=== PATIENT | male | born 1995 | race Caucasian/White ===

== ENCOUNTER 2017-10-28 23:30 | Emergency (ER) | payer OTHER ==
[2017-10-28 23:39] VITALS: BP 153/89; PULSE 101; TEMP 97.4; BMI 25.1
--- NOTE | 2017-10-29 00:51 | PDOC ---
History of Present Illness - General History Source: Patient Exam Limitations: No Limitations - History of Present Illness Initial Comments: 10/29/17 01:00 The patient is a 22 year old male with no significant past medical history who presents to the ED today with right upper extremity pain for 2 hours. The patient states that yesterday he was working out and felt ok. Overnight the patient began to experience pain in his right arm and woke up secondary to his pain. He reports associated swelling of his right upper extremity and notes that his pain is mostly concentrated in the anterior cubital fossa and radiates throughout his elbow. <Faraz Fragoso - Last Filed: 10/29/17 01:00> - General History Source: Patient <Daniel Hunter - Last Filed: 10/29/17 02:00> - General Chief Complaint: Pain, Acute Stated Complaint: ARM INJURY Time Seen by Provider: 10/29/17 00:47 Past History <Faraz Fragoso - Last Filed: 10/29/17 01:00> - Past Medical History COPD: No - Suicide/Smoking/Psychosocial Hx Smoking History: Never smoked Have you smoked in the past 12 months: No Information on smoking cessation initiated: No Hx Alcohol Use: No Drug/Substance Use Hx: No <Daniel Hunter - Last Filed: 10/29/17 02:00> - Past Medical History Allergies/Adverse Reactions: Allergies Allergy/AdvReac Type Severity Reaction Status Date / Time No Known Allergies Allergy Verified 10/28/17 23:39 Home Medications: Ambulatory Orders Ibuprofen 800 mg PO TID #30 tablet 10/29/17 Methocarbamol [Robaxin -] 750 mg PO Q8H #30 tablet 10/29/17 Review of Systems - Review of Systems Able to Perform ROS?: Yes Comments:: 10/29/17 01:00 CONSTITUTIONAL: Absent: fever, no chills, no fatigue EYES: Absent: visual changes ENT: Absent: ear pain, no sore throat CARDIOVASCULAR: Absent: chest pain, no palpitations RESPIRATORY: Absent: cough, no SOB GI: Absent: abdominal pain, no nausea, no vomiting, no constipation, no diarrhea GENITOURINARY: Absent: dysuria, no frequency, no hematuria MUSCULOSKELETAL: (+) Right upper extremity joint pain Absent: back pain, no myalgia SKIN: Absent: rash <Faraz Fragoso - Last Filed: 10/29/17 01:00> *Physical Exam - Vital Signs Last Vital Signs Temp Pulse Resp BP Pulse Ox 97.4 F L 101 H 20 153/89 98 10/28/17 23:37 10/28/17 23:37 10/28/17 23:37 10/28/17 23:37 10/28/17 23:37 - Physical Exam Comments: 10/29/17 01:00 GENERAL: Well-appearing, well-nourished. No apparent distress. HEENT: Normocephalic, atraumatic. PERRL, EOM intact. CARDIOVASCULAR: Normal S1, S2. Regular rate and rhythm. PULMONARY: Clear to auscultation bilaterally. ABDOMEN: Soft, non-distended, non-tender. EXTREMITIES: (+) Pain and edema to right anterior fossa extending throughout entire elbow joint with limited ability to extend or further flex without pain; FROM of right shoulder. No gross deformities. SKIN: Warm, dry. No rash NEUROLOGICAL: No focal neurological deficits. <Faraz Fragoso - Last Filed: 10/29/17 01:00> - Vital Signs Last Vital Signs Temp Pulse Resp BP Pulse Ox 97.4 F L 101 H 20 153/89 98 10/28/17 23:37 10/28/17 23:37 10/28/17 23:37 10/28/17 23:37 10/28/17 23:37 <Daniel Hunter - Last Filed: 10/29/17 02:00> ED Treatment Course - Medications Given in the ED: ED Medications Discontinued Medications Generic Name Dose Route Start Last Admin Trade Name Ishaan PRN Reason Stop Dose Admin Ibuprofen 800 mg 10/29/17 00:52 10/29/17 00:59 Motrin - PO 10/29/17 00:53 800 mg ONCE ONE Administration Methocarbamol 1,000 mg 10/29/17 00:52 10/29/17 00:59 Robaxin - PO 10/29/17 00:53 1,000 mg ONCE ONE Administration <Faraz Fragoso - Last Filed: 10/29/17 01:00> Medical Decision Making - Medical Decision Making 10/29/17 01:59 Dr. Hunter: The scribe's documentation has been prepared under my direction and personally reviewed by me in its entirery. I confirm that the note above accurately reflects all work, treatment, procedures, and medical decision making performed by me. Pt xray is negative for fx or dislocation of right elbow. Pt advised to follow up with ortho if symptoms don't improve <Daniel Hunter - Last Filed: 10/29/17 02:00> *DC/Admit/Observation/Transfer - Attestations Scribe Attestion: 10/29/17 01:00 Documentation prepared by Faraz Fragoso, acting as esthetician and manager medical spa for Daniel Hunter DO. <Faraz Fragoso - Last Filed: 10/29/17 01:00> - Discharge Dispostion Admit: No <Daniel Hunter - Last Filed: 10/29/17 02:00> Diagnosis at time of Disposition: Elbow pain, right - Discharge Dispostion Disposition: HOME Condition at time of disposition: Stable - Referrals Referrals: Sudhir Drew MD [Primary Care Provider] - Steve Clement MD [Staff Physician] - - Patient Instructions Printed Discharge Instructions: DI for Elbow Pain Additional Instructions: apply ice twice to three times daily. Take medication as directed. Follow up with on Thursday if symptoms don't improve - Post Discharge Activity
[2017-10-29] MEDS ORDERED: IBUPROFEN 400 MG TABLET (FP) PO ONE ×2 (00:52→00:55)
[2017-10-29] MEDS ORDERED: METHOCARBAMOL 500 MG TABLET PO ONE (00:52)
[2017-10-29] MEDS ORDERED: METHOCARBAMOL 500 MG TABLET ONE (00:55)
== END 2017-10-29 02:13 | disposition home or self-care (01) ==
LOC: JER 23:30
DX: M25.521 Pain in right elbow (principal)
CPT/HCPCS: 73070-TC-RT-FY; 99281-25

== ENCOUNTER 2019-02-13 20:39 | Emergency (ER) | payer OTHER | END 2019-02-13 21:13 | disposition home or self-care (01) | LOC: JERFT 20:39 ==

== ENCOUNTER 2019-04-01 23:35 | Emergency (ER) | payer OTHER ==
[2019-04-02 00:12] VITALS: BP 126/76; PULSE 89; TEMP 98.5; BMI 25.8
--- NOTE | 2019-04-02 02:35 | PDOC ---
History of Present Illness - General Chief Complaint: Back Pain Stated Complaint: BACK PAIN Time Seen by Provider: 04/02/19 02:35 - History of Present Illness Initial Comments: 04/02/19 02:53 Mr. Laird is a 23 yo male w/ no pmh who presents for evaluation of R sided lower back pain for 1 day. Patient denies any trauma or heavy lifting. Reports he presents as pain has not gotten any better. Denies taking any pain medication. Denies any other symptoms at this time. The patient denies chest pain, shortness of breath, headache and dizziness. Denies fever, chills, nausea, vomit, diarrhea and constipation. Denies dysuria, frequency, urgency and hematuria. Past History - Past Medical History Allergies/Adverse Reactions: Allergies Allergy/AdvReac Type Severity Reaction Status Date / Time No Known Allergies Allergy Verified 04/02/19 01:58 Home Medications: Ambulatory Orders Ibuprofen 800 mg PO TID #30 tablet 10/29/17 Methocarbamol [Robaxin -] 750 mg PO Q8H #30 tablet 10/29/17 COPD: No - Surgical History Appendectomy: Yes - Immunization History Immunization Up to Date: Yes - Suicide/Smoking/Psychosocial Hx Smoking History: Never smoked Have you smoked in the past 12 months: No Information on smoking cessation initiated: No Hx Alcohol Use: No Drug/Substance Use Hx: No Review of Systems - Review of Systems Comments:: 04/02/19 02:54 GENERAL/CONSTITUTIONAL: No fever or chills. No weakness. HEAD, EYES, EARS, NOSE AND THROAT: No change in vision. No ear pain or discharge. No sore throat. CARDIOVASCULAR: No chest pain or shortness of breath RESPIRATORY: No cough, wheezing, or hemoptysis. GASTROINTESTINAL: No nausea, vomiting, diarrhea or constipation. GENITOURINARY: No dysuria, frequency, or change in urination. MUSCULOSKELETAL: +R lower back pain as described. SKIN: No rash NEUROLOGIC: No headache, vertigo, loss of consciousness, or change in strength/ sensation. ENDOCRINE: No increased thirst. No abnormal weight change HEMATOLOGIC/LYMPHATIC: No anemia, easy bleeding, or history of blood clots. ALLERGIC/IMMUNOLOGIC: No hives or skin allergy. *Physical Exam - Vital Signs Last Vital Signs Temp Pulse Resp BP Pulse Ox 98.5 F 89 18 126/76 98 04/01/19 23:42 04/01/19 23:42 04/01/19 23:42 04/01/19 23:42 04/01/19 23:42 - Physical Exam Comments: 04/02/19 02:54 GENERAL: Awake, alert, and fully oriented, in no acute distress HEAD: No signs of trauma, normocephalic, atraumatic EYES: PERRLA, EOMI, sclera anicteric, conjunctiva clear ENT: Auricles normal inspection, hearing grossly normal, nares patent, oropharynx clear without exudates. Moist mucosa NECK: Normal ROM, supple, no lymphadenopathy, JVD, or masses LUNGS: No distress, speaks full sentences, clear to auscultation bilaterally HEART: Regular rate and rhythm, normal S1 and S2, no murmurs, rubs or gallops, peripheral pulses normal and equal bilaterally. ABDOMEN: Soft, nontender, normoactive bowel sounds. No guarding, no rebound. No masses EXTREMITIES: Normal inspection, Normal range of motion, no edema. No clubbing or cyanosis. NEUROLOGICAL: Cranial nerves II through XII grossly intact. Normal speech, normal gait, no focal sensorimotor deficits SKIN: Warm, Dry, normal turgor, no rashes or lesions noted. Medical Decision Making - Medical Decision Making 04/02/19 03:28 Mr. Laird is a 23 yo male w/ no pmh who presents for evaluation of R sided lower back pain. Pain is paraspinal. Patient given motrin with generalized relief from symptoms. UA performed with negative results. Given negative UA and location of pain, symptoms likely 2/2 MSK injury at this time. No concern for acute process at this time. Discharging to home. *DC/Admit/Observation/Transfer Diagnosis at time of Disposition: Back pain Qualifiers: Back pain location: low back pain Chronicity: acute Back pain laterality: right Sciatica presence: without sciatica Qualified Code(s): M54.5 - Low back pain - Discharge Dispostion Disposition: HOME - Referrals Referrals: Sudhir Drew MD [Primary Care Provider] - - Patient Instructions Printed Discharge Instructions: DI for Low Back Pain Additional Instructions: You were evaluated today in the ER for your back pain. We evaluated you for kidney problems with a urinalysis which was completely normal. You may take motrin or tylenol per package instructions for further control of your symptoms. Follow-up with primary care provider for further evaluation next week. Return to ER if any fever, chills, worsening of pain, or other concerning symptoms. - Post Discharge Activity
[2019-04-02] MEDS ORDERED: IBUPROFEN 400 MG TABLET (FP) PO ONE ×2 (02:53→02:55)
[2019-04-02 03:07] LABS: URINE APPEARANCE CLEAR; URINE BILIRUBIN NEGATIVE (NEGATIVE); URINE COLOR YELLOW; URINE GLUCOSE (UA) NEGATIVE (NEGATIVE); URINE KETONE NEGATIVE (NEGATIVE); URINE LEUK ESTERASE NEGATIVE (NEGATIVE); URINE NITRITE NEGATIVE (NEGATIVE); URINE PROTEIN NEGATIVE (NEGATIVE); URINE UROBILINOGEN 0.2 mg/dL (0.2-1.0)
--- NOTE | 2019-04-02 03:29 | PDOC ---
Attending Attestation - Resident Resident Name: Ace Cash - ED Attending Attestation I have performed the following: I have examined & evaluated the patient, The case was reviewed & discussed with the resident, I agree w/resident's findings & plan - HPI HPI: 04/02/19 03:29 Pt comes with low back pain that began today and pt didn't take anything for it. Came to the ER. He says that he has no dysuria and no fam hx of kidney stones. - Physicial Exam PE: 04/03/19 20:37 Agree with resident exam. Pt has muscular paraspinal back pain and he is afebrile and all vitals are normal. - Medical Decision Making 04/03/19 20:37 Pt will be treated with nsaids and muscle relaxants. He is stable for discharge.
== END 2019-04-02 03:36 | disposition home or self-care (01) ==
LOC: JER 23:35
DX: M54.5 Low back pain (principal)
CPT/HCPCS: 81003; 99282-25